=== PATIENT | male | born 1930 | race Caucasian/White ===

== ENCOUNTER 2018-12-27 12:14 | Observation (INO) | payer OTHER ==
--- NOTE | 2018-12-27 12:36 | EDPHY ---
H & P Time Seen by Provider: 12/27/18 12:34 HPI/ROS: Chief complaint. Stroke-like symptoms HPI. Patient is an 80-year-old male walks in from his physician office with stroke-like symptoms. This morning when he awakened at about 8:30 a.m. He had bilateral hand spasm and clenching. He and his daughter went to the physician' s office at 11:30 a.m. where he developed right facial droop and then the patient says that he had somewhat of an aura like he was going to have a headache or migraine. He then had several minutes of generalized seizure activity. He was sent to the emergency department from there. Patient denies chest pain or shortness of breath. Daughter feels his facial droop has resolved. Patient does not complain of symptoms. He takes aspirin daily ROS 10 systems were reviewed and negative with the exception of the elements mentioned in the history of present illness Past Medical/Surgical History: Atrial fibrillation, arthritis, splenectomy, appendectomy, tonsillectomy. Social History: Single, nonsmoker, no Smoking Status: Former smoker Physical Exam: General Appearance: Alert well-developed male mild distress vital signs are stable Eyes: Pupils equal and round no pallor or injection. ENT, Mouth: Mucous membranes are moist. Respiratory: There are no retractions, lungs are clear to auscultation. Cardiovascular: Regular rate and rhythm. Gastrointestinal: Abdomen is soft and nontender, no masses, bowel sounds normal. Neurological: Awake and alert, sensory and motor exams grossly normal. Speech is normal. Cranial nerves are normal. There is no facial droop currently. There is no pronator drift. Yxabuu-[id number]-bkfp are intact bilaterally. Leg strength is normal. Skin: Warm and dry, no rashes. Musculoskeletal: Neck is supple nontender. Extremities symmetrical, full range of motion. Psychiatric: Patient is oriented X 3, there is no agitation. Constitutional: Initial Vital Signs Temperature (C) 36.8 C 12/27/18 12:23 Heart Rate 67 12/27/18 12:23 Respiratory Rate 16 12/27/18 12:23 Blood Pressure 162/72 H 12/27/18 12:23 O2 Sat (%) 99 12/27/18 12:23 O2 Delivery Mode Room Air Allergies/Adverse Reactions: No Known Allergies Allergy (Unverified 12/27/18 13:04) Home Medications: Medication Instructions Recorded Aspirin 81mg (*) 12/27/18 Medical Decision Making - Diagnostics EKG Interpretation: EKG interpreted by me shows normal sinus rhythm normal interval and axis. QRS is normal there is no significant ST elevation or depression. No arrhythmia. The rate is 53 Imaging Results: Imaging Impressions Head CT 12/27/18 12:35 Impression: 1. No acute intracranial findings. 2. Diffuse cerebral atrophy with periventricular and subcortical low attenuation consistent with chronic microvascular ischemic gliosis. 3. Additional findings as above. Findings discussed with WILBERT TAVAREZ 12/27/2018 at 12:43. Head CTA 12/27/18 13:02 Impression: 1. No acute vascular findings. If symptoms persist and clinical suspicion warrants, consider MRI. 2. Multifocal atherosclerosis without significant stenosis. 3. Pleural calcification in the right lung apex could be related to prior asbestos exposure. 4. Degenerative change in the cervical spine with spinal canal narrowing. Stenoses are calculated using [place] Symptomatic Carotid Endarterectomy Trial (NASCET) criteria. Findings discussed with Dr. Wilbert Tavarez on 12/27/2018 at 13:46. Neck CTA 12/27/18 13:02 Impression: 1. No acute vascular findings. If symptoms persist and clinical suspicion warrants, consider MRI. 2. Multifocal atherosclerosis without significant stenosis. 3. Pleural calcification in the right lung apex could be related to prior asbestos exposure. 4. Degenerative change in the cervical spine with spinal canal narrowing. Stenoses are calculated using [place] Symptomatic Carotid Endarterectomy Trial (NASCET) criteria. Findings discussed with Dr. Wilbert Tavarez on 12/27/2018 at 13:46. Noncontrast head CT shows no intracranial bleeding CTA head and neck show no significant obstruction Procedures: IV normal saline, monitor ED Course/Re-evaluation: I consulted discussed case with for [facility]. He recommends CTA head and neck followed by MRI and admission. No tPA. Patient remains stable on re-evaluation. The patient and daughter and I discussed imaging and lab results. We discussed treatment plan including recommendation for admission. They expressed understanding and agreed I consulted discussed case with Dr. Shook, hospitalist, who agrees to the admission Differential Diagnosis: Considered CVA, intracranial bleeding, seizure, atypical migraine - Data Points Laboratory Results: Laboratory Results 12/27/18 12:20 12/27/18 12:20 12/27/18 12/27/1819 12:32 12:32 12:20 WBC RBC Hgb POC Hgb 14.3 gm/dL gm/dL (13.7-17.5) Hct POC Hct 42 % % (40-51) MCV MCH MCHC RDW Plt Count MPV Neut % (Auto) Lymph % (Auto) Redwood % (Auto) Eos % (Auto) Baso % (Auto) Nucleat RBC Rel Count Absolute Neuts (auto) Absolute Lymphs (auto) Absolute Monos (auto) Absolute Eos (auto) Absolute Basos (auto) Absolute Nucleated RBC Immature Gran % Immature Gran # RBC/WBC/PLT Morphology Platelet Estimate PT INR POC Sodium 139 mEq/L mEq/L (135-145) Sodium REJ POC Potassium 4.5 mEq/L mEq/L (3.3-5.0) Potassium REJ POC Chloride 105 mEq/L mEq/L (97-110) Chloride REJ Carbon Dioxide REJ POC Total CO2 25 mEq/L mEq/L (22-31) Anion Gap REJ POC BUN 19 mg/dL mg/dL (7-23) BUN REJ Creatinine REJ POC Creatinine 1.1 mg/dL mg/dL (0.7-1.3) Estimated GFR REJ Glucose REJ POC Glucose 127 mg/dL H mg/dL (70-100) Calcium REJ POC Troponin I 0.00 ng/mL ng/mL (0.00-0.08) 12/27/18 12/27/18 12:20 12:20 WBC 12.95 10^3/uL H 10^3/uL (3.80-9.50) RBC 4.39 10^6/uL L 10^6/uL (4.40-6.38) Hgb 13.8 g/dL g/dL (13.7-17.5) POC Hgb Hct 40.8 % % (40.0-51.0) POC Hct MCV 92.9 fL fL (81.5-99.8) MCH 31.4 pg pg (27.9-34.1) MCHC 33.8 g/dL g/dL (32.4-36.7) RDW 14.6 % % (11.5-15.2) Plt Count 396 10^3/uL 10^3/uL (150-400) MPV 9.7 fL fL (8.7-11.7) Neut % (Auto) 70.2 % % (39.3-74.2) Lymph % (Auto) 14.7 % L % (15.0-45.0) Redwood % (Auto) 13.6 % H % (4.5-13.0) Eos % (Auto) 0.9 % % (0.6-7.6) Baso % (Auto) 0.3 % % (0.3-1.7) Nucleat RBC Rel Count 0.0 % % (0.0-0.2) Absolute Neuts (auto) 9.09 10^3/uL H 10^3/uL (1.70-6.50) Absolute Lymphs (auto) 1.90 10^3/uL 10^3/uL (1.00-3.00) Absolute Monos (auto) 1.76 10^3/uL H 10^3/uL (0.30-0.80) Absolute Eos (auto) 0.12 10^3/uL 10^3/uL (0.03-0.40) Absolute Basos (auto) 0.04 10^3/uL 10^3/uL (0.02-0.10) Absolute Nucleated RBC 0.00 10^3/uL 10^3/uL (0-0.01) Immature Gran % 0.3 % % (0.0-1.1) Immature Gran # 0.04 10^3/uL 10^3/uL (0.00-0.10) RBC/WBC/PLT Morphology TNP Platelet Estimate TNP PT 13.3 SEC SEC (12.0-15.0) INR 1.05 (0.83-1.16) POC Sodium Sodium POC Potassium Potassium POC Chloride Chloride Carbon Dioxide POC Total CO2 Anion Gap POC BUN BUN Creatinine POC Creatinine Estimated GFR Glucose POC Glucose Calcium POC Troponin I Medications Given: Discontinued Medications Sodium Chloride (Ns) 1,000 mls @ 0 mls/hr IV EDNOW ONE; Wide Open PRN Reason: Protocol Stop: 12/27/18 13:04 Last Admin: 12/27/18 13:10 Dose: 1,000 mls Point of Care Test Results: Chemistry 12/27/18 12/27/18 12:32 12:32 POC Sodium 139 mEq/L mEq/L (135-145) POC Potassium 4.5 mEq/L mEq/L (3.3-5.0) POC Chloride 105 mEq/L mEq/L (97-110) POC Total CO2 25 mEq/L mEq/L (22-31) POC BUN 19 mg/dL mg/dL (7-23) POC Creatinine 1.1 mg/dL mg/dL (0.7-1.3) POC Glucose 127 mg/dL H mg/dL (70-100) POC Troponin I 0.00 ng/mL ng/mL (0.00-0.08) ISTAT H&H 12/27/18 12:32 POC Hgb 14.3 gm/dL gm/dL (13.7-17.5) POC Hct 42 % % (40-51) Departure - Departure Disposition: [facility] Inpatient Acute Clinical Impression: Transient cerebral ischemia Qualifiers: Transient cerebral ischemia type: unspecified Qualified Code(s): G45.9 - Transient cerebral ischemic attack, unspecified Condition: Fair Referrals: Patient,NotPresent [Unknown] - As per Instructions
[2018-12-27 12:40] LABS: PLATELET COUNT 396 10^3/uL (150-400)
[2018-12-27 12:56] LABS: INR 1.05 (0.83-1.16); PROTIME(PATIENT) 13.3 SEC (12.0-15.0)
[2018-12-27] MEDS ORDERED: NS 1,000 ML IV ONE (13:03)
[2018-12-27] MEDS ORDERED: IOPAMIDOL (ISOVUE 370) 100 ML BTL IV ONE (13:06)
--- NOTE | 2018-12-27 14:17 | CPEKG ---
Test Reason : OPEN Blood Pressure : / mmHG Vent. Rate : 053 BPM Atrial Rate : 053 BPM P-R Int : 212 ms QRS Dur : 082 ms QT Int : 437 ms P-R-T Axes : 061 033 065 degrees QTc Int : 411 ms Sinus rhythm Borderline prolonged UT interval Confirmed by Wolf Tavarez ([id number]) on 12/27/2018 2:17:13 PM Referred By: PHYSICIAN ED Confirmed By:Wolf Tavarez
[2018-12-27] MEDS ORDERED: ACETAMINOPHEN 325 MG TAB PO PRN (15:06)
[2018-12-27] MEDS ORDERED: ONDANSETRON 4 MG/2 ML VIAL IVP PRN (15:06)
[2018-12-27] MEDS ORDERED: ONDANSETRON DISINTEGRATING 4 MG TAB PO PRN (15:06)
--- NOTE | 2018-12-27 16:02 | GHP ---
[f rep st] HISTORY AND PHYSICAL DATE OF ADMISSION: 12/27/2018 HISTORY OF PRESENT ILLNESS: The patient is an 88-year-old gentleman with history of migraines and at rial fibrillation on aspirin who presents to the ER from his primary care physician's clinic. He spe nt yesterday pulling dandelions. He woke up this morning with bilateral hand cramps, was unable to p ut in his hearing aids, went to see his doctor about this, and during this time, he developed a migra ine and subsequently thereafter, he had a right-sided facial droop, and seizure-like activity. Per t he daughter, it sounded like his eyes were open, but he was not alert. He had generalized tonoclonic movements. 911 was called. He was diagnosed with atrial fibrillation over in the [employer] system. It was discussed the risks and benefits of anticoagulation and elected aspirin. His CHADS2-VASc today, he would get a poi nt for age and a point for vascular disease on the basis of his CTA. He does not have hypertension, nor diabetes, that would give him a score of 2. With regard to his migraines , he sometimes has an aura, which he had today. He does usually have fo amaury neurologic findings or seizure activity. They typically respond to an aspirin. With regard to his hand cramps, these are new problem for him. REVIEW OF SYSTEMS: Complete 10-point review of systems conducted and negative, except as noted in HP I. PAST MEDICAL HISTORY: Migraines, atrial fibrillation. ALLERGIES: No known drug allergies. MEDICATIONS: Aspirin. SOCIAL HISTORY: He is retired from the . Lives with his in their own home. He has rem ained active. He has moderate alcohol. He smoked for about 20 years. FAMILY HISTORY: Parents . PHYSICAL EXAMINATION: VITAL SIGNS: Temp 36.8, blood pressure 162/72, pulse 67, breathing 16 times a minute, 98% on room air GENERAL: In no acute distress. HEENT: Sclerae anicteric. Oropharynx kimberli r. Mucous membranes moist. NECK: Supple without lymphadenopathy or JVD. LUNGS: Clear to ausculta tion bilaterally. HEENT: S1, S2 without murmur. ABDOMEN: Soft, nontender, nondistended. LOWER EX TREMITIES: No edema. Calves nontender. SKIN: Without rash. NEUROLOGIC: Notable for no facial dr oop. Cranial nerves 2 through 12 are intact. Speech is fluent. 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 His left dorsiflexion is weak. Otherwise, lower extremities are unrema rkable. LABORATORY/IMAGING: White count 13, hematocrit 40.1, platelets are 396,000. INR is 1.05. Point-of- care labs: Sodium 139, potassium 4.5, chloride 105, bicarb 25, BUN 19, creatinine 1.1, glucose 127. Vlmjp-nx-umbb troponin 0.00. Head CT shows no acute intracranial findings, diffuse cerebral atrophy with chronic microvascular dis ease. A linear hypodensity from the right caudate head through the basal ganglia, which may be relat ed to old infarct. CT-A of the head and neck shows no acute vascular findings. Multifocal atherosclerosis without signi ficant stenoses, pleural calcification, degenerative change in the cervical spine. EKG interpreted by me shows sinus at 53 with normal axis and intervals. No ST or T-wave changes. I discussed the case with Dr. Wolf Tavarez. ASSESSMENT/PLAN: 88-year-old gentleman with focal neurologic findings, seizure activity, migraine, a nd hand cramps. 1. Hand cramps. I think this is secondary to gardening. I do not think this is part of his present ation other than related in time. 2. Question transient ischemic attack versus stroke. Patient had a facial droop, followed by a seiz ure, but his CT scan is unremarkable for acute stroke and his exam is normalized. I will perform an MRI for further evaluation. We will complete the stroke workup with lipid panel, echo, etc. We can p ut him on telemetry. He is noted to have atrial fibrillation. This is not clearly a neurovascular e vent. 3. Seizure-like activity. I will perform EEG in the morning. Patient needs an MRI with and without contrast to evaluate for brain tumor that sort of a leading differential at this point in time. 4. Atrial fibrillation. The risk, benefit of anticoagulation is probably favor anticoagulation in t his 88-year-old who continues to thrive as an outpatient. They are considering this. They had this conversation previously and elected aspirin. If he goes out without anticoagulation, it may be appro priate to add Plavix for 21 days. 5. Leukocytosis, probably related to current findings. We will follow. DISPOSITION: Observation status. CODE: Full. /[id number]/MODL
[2018-12-27] MEDS ORDERED: GADOBUTROL 10 ML VIAL IVP ONE (16:33)
[2018-12-28] MEDS ORDERED: CLOPIDOGREL BISULFATE 75 MG TAB PO SCH (09:00)
--- NOTE | 2018-12-28 10:12 | NEUROPROG ---
Assessment: [id number] - Neurology Consult: - CC: Possible Seizure vs TIA vs Complex Migraine - HPI: 12/28/18: Pt with history of migraines and afib noted on 12/27/18 to have migraine with facial droop followed by confusion episode. Brain MRI showed old lacunar stroke but nothing acute. Pts daughter reports he often gets migraine aura 3-4/ week for many months now. His neurologic exam was nonfocal. I suspect due to his advanced age and recurrent migraines he likely got a migraine that caused an acute confusional state. However, focal seizure or TIA is also possible. Will get EEG. Pt declined a trial of gabapentin 300 mg qhs for his migraines ( would also treat seizures). Pt with history of afib and old stroke seen on brain MRI so I have recommended that he be started on oral anticoagulation for stroke prevention. - PMHx: migraines, afib - SHx: FHx: parents - ROS: Pt denied acute fever, total vision loss, active severe chest pain, respiratory failure, total body severe rash, total bowel/bladder incontinence, psychosis, active seizures, or active bleeding - O: VS reviewed General: Alert Eyes: Fundoscopic exam not able to visualize optic disks CV: Heart RRR, no murmur, no carotid bruit Lungs: Clear to auscultation bilaterally, no rhonchi or rales Neuro: - Mental: . Oriented x person/place/date . concentration appears normal . speech fluency/comprehension normal . memory appears normal . fund of knowledge appear intact - Cranial Nerves: . II: PERRL, VFFTC . III/IV/: EOMI, no nystagmus, normal smooth pursuits, no Ptosis . V: facial sensation intact to LT . VII: face symmetric to eye closure and smile . VIII: hearing intact to conversation . IX/X: uvula raises symmetrically . XI: SCM 5/5 B/L strength . XII: tongue protrudes midline w/nl strength - Motor: . Tone: normal tone in all 4 extremity . 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 No acute hemorrhage, definite acute infarct, hydrocephalus or mass effect. Mild cerebral atrophy. Multiple nonspecific hyperintense T2/FLAIR signal abnormalities in the white matter of bilateral cerebral hemispheres. Differential diagnosis includes severe microvascular ischemic gliosis, versus less likely post-infectious/post-inflammatory sequela. No enhancing lesions. ( I personally visualized the images on 12/28/18) 12/27/18- Head/neck CTA: no significant stenosis, no significant vessel abnormality - Assessment: 1. Episode of transient right facial droop followed by confusion episode: DDx is complex migraine vs seizure vs TIA - 2. Afib 3. Migraines 4. 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 noted on brain MRI on 12/27/18 - Plan: - Recommend changing from antiplatelet therapy to oral anticoagulation given history of afib and prior stroke seen on brain MRI - TTE - Blood pressure < 140/90 - LDL < 70 (74), recommend beginning a statin - H1AC goal < 7.0 - PT/OT/Speech to determine rehab needs - EEG - Seizure precautions and no driving until event free for 90 days - F/U with neurology clinic 1-6 weeks after hospital discharge or if not possible then see [facility] provider and get referral to neurology after hospital discharge Objective: Vital Signs Temp Pulse Resp BP Pulse Ox 36.6 C 53 L 15 154/66 H 97 12/28/18 07:48 12/28/18 07:48 12/28/18 07:48 12/28/18 07:48 12/28/18 07:48 Laboratory Results 12/27/18 15:09 12/27/18 12/28/18 12/29/18 05:59 05:59 05:59 Intake Total 740 Output Total 450 Balance 290 PT 13.3 SEC (12.0-15.0) 12/27/18 12:20 INR 1.05 (0.83-1.16) 12/27/18 12:20 Allergies/Adverse Reactions: No Known Allergies Allergy (Unverified 12/27/18 13:04)
--- NOTE | 2018-12-28 17:19 | ECHO ---
[email or web address] [address] [address] Main: [phone] Echocardiography Examination Transthoracic Name: SHAHLA PAYTON MR#: [id number] Study Date: 12/28/2018 Study Time: 02:55 PM Date of : 1930 Age: 88 year(s) Height: 170.2 cm (67 in.) Weight: 73.94 kg (163 lb.) BSA: 1.85 m2 Gender: Male Examination: Echo Contrast: Image Quality: Adequate Rhythm: Heart Rate: BP: 185 mmHg/91 mmHg Indication: Ischemic stroke w/o TPA Procedure Staff Referring Physician: Consumer Loan Manager: Roxana Boo LOI Reading Physician: Teodoro Merida MD Requesting Provider: Ordering Physician: Kj Alatorre Indication: Ischemic stroke w/o TPA Measurements Chambers AV/MV Label Value Normal Value Label Value Normal Value LVDd, 2D 4.8 cm (4.2cm - 5.9cm) AV PGmean 2 mmHg LVDs, 2D 3.1 cm (2.1cm - 4cm) AV Vmax 0.98 m/s IVSd, 2D 0.8 cm (0.6cm - 1.1cm) MV E Vmax 0.93 m/s LVPWd, 2D 0.7 cm (0.6cm - 1cm) MV A Vmax 0.56 m/s LVEF, 2D 64 % (54% - 74%) MV E/A 1.66 LADs, 2D 4.2 cm (3cm - 4cm) MV E/E' lateral 11.9 Additional Vessels MV E/E' septal 10.3 (0.45 - 1.25) Label Value Normal Value MV E' septal 0.09 m/s AoRoot, MM 3.8 cm (2.2cm - 3.7cm) MV E' lateral 0.08 m/s MV E/E' mean 10.94 MV E' mean 0.08 m/s TV/PV Label Value Normal Value RA Pressure 5 mmHg RVSP 27 mmHg TR Pmax 22 mmHg TR Vmax 2.36 m/s Patient: SHAHLA PAYTON Study Date: 12/28/2018 Page 1 of 3 02:55 PM Conclusions Left Ventricle: Left ventricle is normal in size. EF range is estimated at 65 % - 70 %. There are no regional wall motion abnormalities. Mitral Valve: Redundant chordal structure of the posterior mitral leaflet.. Mild mitral regurgitation. Aortic Valve: There is no aortic stenosis. Aortic leaflets exhibit mild calcification. Tricuspid Valve: Trivial tricuspid regurgitation. Right Ventricular systolic pressure is measured at 27 mmHg. Pericardium: No pericardial effusion. Overall Conclusions: There is no previous echocardiogram for comparison. Findings Left Ventricle: Left ventricle is normal in size. Normal global systolic left ventricular function. EF range is estimated at 65 % - 70 %. Left ventricle wall thickness is normal. There are no regional wall motion abnormalities. Left ventricular diastolic function parameters are normal. IVS: The septum is intact. Right Ventricle: Normal size right ventricle. Right ventricular systolic function is normal. Left Atrium: The left atrium is normal in size. IAS: Normal appearing atrial septum. Right Atrium: The right atrium is normal in size. Mitral Valve: Redundant chordal structure of the posterior mitral leaflet.. Mild mitral regurgitation. No mitral valve stenosis. Aortic Valve: No aortic valve regurgitation. There is no aortic stenosis. Aortic leaflets exhibit mild calcification. Tricuspid Valve: Tricuspid valve leaflets are normal in appearance and function. Trivial tricuspid regurgitation. No tricuspid valve stenosis. Right Ventricular systolic pressure is measured at 27 mmHg. Pulmonary artery pressure normal. Pulmonic Valve: Pulmonic valve is poorly visualized. Pulmonic leaflets exhibit normal cuspal separation. No pulmonic valve regurgitation is evident. There is no pulmonic valve stenosis. Aorta: The aorta is normal. The aortic root size in M-mode measures 3.8 cm. Aorta Measurements AoRoot, MM is 3.8 cm. Pulmonary Artery: Patient: SHAHLA PAYTON Study Date: 12/28/2018 Page 2 of 3 02:55 PM The pulmonary artery morphology appears normal. IVC: The inferior vena cava is normal in size and course. Pericardium: No pericardial effusion. No pleural effusion present. Exam Details Procedure Ordered: Echo Procedure Status: Routine study Image Quality: Adequate Facility Location: Cardiac Echo 1 (No Signature Object) Patient: SHAHLA PAYTON Study Date: 12/28/2018 Page 3 of 3 02:55 PM [id number]
--- NOTE | 2018-12-28 17:25 | HOSPPROG ---
Hospitalist Progress Note Assessment/Plan: 88 yo M with focal neurological findings, seizure activity, migraine, and hand cramps. 1. Questionable TIA vs. Stroke - Had facial droop, followed by seizure - CT Head, CTA Head/Neck negative for acute etiology on admission - MRI performed which showed old lacunar infarct on admission - Neurology consulted who recommends changing antiplatelet therapy (Plavix) to oral AC (Eliquis 5 mg BID), TTE, starting statin, PT/OT, BP goal <140/90, f/u in neurology clinic in 1-6 weeks 2. Seizure-like activity - W/u as above - Neurology recommending EEG to be performed today 3. A Fib - CHADsVASC 3 given vascular disease, old stroke on MRI - Will start Eliquis today - Continue to monitor 4. Leukocytosis - Probably related to above problems, no other infectious symptoms FEN: Regular DVT PPx: Eliquis Code: FULL Dispo: Pending neurological w/u Objective: Vital Signs Temp Pulse Resp BP Pulse Ox 36.5 C 64 18 166/77 H 94 12/28/18 16:00 12/28/18 16:00 12/28/18 16:00 12/28/18 16:00 12/28/18 16:00 Laboratory Results 12/27/18 15:09 12/27/18 12/28/18 12/29/18 05:59 05:59 05:59 Intake Total 740 Output Total 450 Balance 290 PT 13.3 SEC (12.0-15.0) 12/27/18 12:20 INR 1.05 (0.83-1.16) 12/27/18 12:20 ICD10 Worksheet Patient Problems: Problems Problem Status Onset Transient cerebral ischemia Acute
--- NOTE | 2018-12-28 19:31 | NEUROPROG ---
Assessment: EEG was normal so no seizure meds needed at this time. Neurology will sign off. Please see my note for full recs. Objective: Vital Signs Temp Pulse Resp BP Pulse Ox 36.5 C 64 18 166/77 H 94 12/28/18 16:00 12/28/18 16:00 12/28/18 16:00 12/28/18 16:00 12/28/18 16:00 Laboratory Results 12/27/18 15:09 12/27/18 12/28/18 12/29/18 05:59 05:59 05:59 Intake Total 740 400 Output Total 450 600 Balance 290 -200 PT 13.3 SEC (12.0-15.0) 12/27/18 12:20 INR 1.05 (0.83-1.16) 12/27/18 12:20 Allergies/Adverse Reactions: No Known Allergies Allergy (Unverified 12/27/18 13:04)
--- NOTE | 2018-12-28 20:52 | CPEEG ---
[f rep st] ELECTROENCEPHALOGRAM INPATIENT EEG. DATE OF STUDY: 12/28/2018 This is an EEG performed for 20 minutes. No seizure activity or epileptiform discharges are noted. IMPRESSION: Overall normal EEG with no evidence of any seizure activity or any epileptic discharges. /[id number]/MODL
[2018-12-28] MEDS: APIXABAN 5 MG TAB PO SCH (21:40)
[2018-12-29 07:53] VITALS: BP 172/83
[2018-12-29] MEDS: APIXABAN 5 MG TAB PO SCH (09:33)
--- NOTE | 2018-12-29 09:53 | PDIAF ---
- Diagnosis Diagnosis: Migraine Code Status: Full Code - Medication Management Discharge Medications: electronically signed and located in the Home Medication List. - Orders Services needed: Physical Therapy, Occupational Therapy, Speech Language Pathologist - Follow Up Care Current Providers and Referrals: Kolby Powell DO [Medical Doctor] - Patient,NotPresent [Unknown] - As per Instructions
--- NOTE | 2018-12-29 13:57 | ASMTCMCOM ---
CM Note CM Note Notes: CM reviewed pts chart. Pt is being d/c'd today. Dr. Brown would like pt to have HC services. CM met w/ pt, daughter Clarice and . The family and pt are in favor for having HC services. They are aware that they would need to be home bound. Referral sent to [facility] along w/ DC orders. CM confirmed w/ [facility] regarding referral. Clarice would like to be the second contact. Her number is [phone]. Per neurology, pt cannot drive for 90 days. CM confirmed pts PCP, address and phone number. Family is avaialble to provide 15/03 supervision. CM available for changes. Plan: [facility]; PT, OT, NURSE CHARGE RN Date Signed: 12/29/2018 01:56 PM Electronically Signed By:GAMAL Craven
--- NOTE | 2018-12-29 13:58 | ASMTLACE ---
LACE Length of stay for Answers: 2 days current admission Acuity / Level of Answers: No Care: Did the patient have an inpatient admission? Comorbidities - select Answers: Other Notes: AFib all that apply # of Emergency department Answers: 1-2 visits in the last 6 months Score: 4 Date Signed: 12/29/2018 01:57 PM Electronically Signed By:GAMAL Craven
--- NOTE | 2018-12-29 14:05 | ASDISCHSUM ---
Discharge Information Plan Status:Home with Home Health Medically Cleared to Leave:12/29/2018 Discharge Date:12/29/2018 12:01 PM D/C Disposition: ADT D/C Disposition:Home, Routine, Self-Care Projected Discharge Date:12/29/2018 11:00 AM Transportation at D/C: Discharge Delay Reason: Follow-Up Date:12/29/2018 11:00 AM Discharge Slot: Final Diagnosis: Placement Information Referral Type:*Home Health Care Services Referral ID:[id number] Provider Name:[facility] Address 1:[address] [place] [address] Address 2: City:[place] Selection Factors: State:[place] Patient Contact Information Contact Name:JUANJO Relationship:Son Address:[address] MAN Work Phone: City:[place] Alternate Phone: State/Zip Code:[place] [address] Email: Financial Information Financial Class:Medicare Advantage Plans Primary Plan Desc:[facility] MEDICARE ADVANTAGE OUTPAT Primary Plan Number:[id number] Secondary Plan Desc: Secondary Plan Number: Assessment Information LACE LACE Length of stay for Answers: 2 days current admission Acuity / Level of Answers: No Care: Did the patient have an inpatient admission? Comorbidities - select Answers: Other Notes: AFib all that apply # of Emergency department Answers: 1-2 visits in the last 6 months Score: 4 Date Signed: 12/29/2018 01:57 PM Electronically Signed By:GAMAL Craven [facility] CM Progress Note CM Note CM Note Notes: CM reviewed pts chart. Pt is being d/c'd today. Dr. Brown would like pt to have HC services. CM met w/ pt, daughter Clarice and . The family and pt are in favor for having HC services. They are aware that they would need to be home bound. Referral sent to [facility] along w/ DC orders. CM confirmed w/ [facility] regarding referral. Clarice would like to be the second contact. Her number is [phone]. Per neurology, pt cannot drive for 90 days. CM confirmed pts PCP, address and phone number. Family is avaialble to provide 15/03 supervision. CM available for changes. Plan: [facility]; PT, OT, [facility] Date Signed: 12/29/2018 01:56 PM Electronically Signed By:GAMAL Craven Intervention Information Intervention Type:*Incorrect Registration Date of Service:12/28/2018 11:29 AM Patient Type:Inpatient Staff Member:Katelyn Garcia Hours: Discipline: Severity: Comment:
--- NOTE | 2018-12-29 15:22 | PDDCSUM ---
Discharge Summary Discharge Summary: Date of Admission: 12/27/2018 Date of Discharge: 12/29/2018 Consults: Neurology Procedures: CT Head, CTA Head/Neck, Brain MRI, TTE, EEG Followup: PCP, Neurology Hospital Course Problem List: 88 yo M with focal neurological findings, seizure activity, migraine, and hand cramps. 1. Questionable TIA vs. 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 Seizure-like activity - W/u as above - Neurology recommending EEG which was normal and did not demonstrate seizure activity per neurology 3. A Fib - CHADsVASC 3 given vascular disease, old stroke on MRI - Eliquis as above - Continue to monitor 4. Leukocytosis - Probably related to above problems, no other infectious symptoms 5. HTN - Patient's BP elevated to 170/80 this AM - Patient not interested in BP medications - Recommended ambulatory BP monitoring and f/u with PCP for further evaluation and management Time spent on discharge was >35 minutes with >50% of time spent on patient education and counseling.
== END 2018-12-29 12:01 | disposition home health service (06) ==
LOC: EDUNIT# → INTOOBSV 14:24 → F3N 18:05
PROVIDERS: ADMIT Internal Medicine; ATTEND Internal Medicine
DX: R29.810 Facial weakness (principal); R56.9 Unspecified convulsions; I48.91 Unspecified atrial fibrillation; Z79.01 Long term (current) use of anticoagulants; G43.909 Migraine, unspecified, not intractable, without status migrainosus; I10 Essential (primary) hypertension; Z86.73 Personal history of transient ischemic attack (TIA), and cerebral infarction without residual deficits; E86.9 Volume depletion, unspecified
CPT/HCPCS: 70450; 70496; 70498; 70553; 92523; 93005; 93306; 95816; 96360; 97116; 97161; 97166; 97530; 97535; 99285; A9585; G0378; Q9967; 82435-PO; 82565-PO; 82947-PO; 84132-PO; 84295-PO; 84484-ER; 84520-PO; 85014-ER